=== PATIENT | male | born 1975 | race Two or more races ===

== ENCOUNTER 2019-12-22 10:57 | Outpatient (CLI) | payer OTHER ==
[~2019-12-22 10:57] MED LIST: SERTRALINE
== END 2019-12-22 11:01 | disposition home or self-care (01) ==
LOC: RAD 10:57
PROVIDERS: ATTEND Internal Medicine
DX: M54.5 Low back pain (principal); I10 Essential (primary) hypertension; E03.8 Other specified hypothyroidism; E78.89 Other lipoprotein metabolism disorders; E66.8 Other obesity; B97.89 Other viral agents as the cause of diseases classified elsewhere; Z12.11 Encounter for screening for malignant neoplasm of colon; Z65.8 Other specified problems related to psychosocial circumstances